=== PATIENT | male | born 1985 | race Asian ===

== ENCOUNTER 2017-11-06 20:56 | Emergency (ER) | payer OTHER ==
[~2017-11-06] VITALS: Ht 180.3 cm; Wt 83.9 kg
[2017-11-06 21:05] VITALS: BP 124/68
--- NOTE | 2017-11-06 21:10 | Emergency Room Report ---
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 He presents with a scratch from outpatient. This occurred just prior to arrival. No other injury. Immunization up to date Allergies: Coded Allergies: No Known Allergies (Unverified , 11/06/17) Patient History Past Medical History: see triage record, old chart reviewed Past Surgical History: none Pertinent Family History: none Social History: Denies: smoking Immunizations: other Reviewed Nursing Documentation: PMH: Agreed, PSxH: Agreed Nursing Documentation-PMH Past Medical History: No Stated History Review of Systems Eye: Denies: eye pain, blurred vision ENT: Denies: ear pain, nose congestion, throat swelling Respiratory: Denies: cough, shortness of breath Cardiovascular: Denies: chest pain, palpitations Gastrointestinal: Denies: abdominal pain, diarrhea, nausea, vomiting Musculoskeletal: Denies: back pain, joint pain Skin: Denies: rash Neurological: Denies: headache, numbness Endocrine: Denies: increased thirst, increased urine Hematologic/Lymphatic: Denies: easy bruising All Other Systems: negative except mentioned in HPI Physical Exam Vital Signs Date Time Temp Pulse Resp B/P (MAP) Pulse Ox O2 Delivery O2 Flow Rate FiO2 11/06/17 20:57 98.6 74 15 124/68 100 Room Air vitals normal Sp02 EP Interpretation: reviewed, normal General Appearance: well appearing, no apparent distress, alert Head: normocephalic, atraumatic Eyes: bilateral eye PERRL, bilateral eye EOMI ENT: hearing grossly normal, normal pharynx Neck: full range of motion, supple, no meningismus Respiratory: chest non-tender, lungs clear, normal breath sounds Cardiovascular #1: regular rate, rhythm, no murmur Gastrointestinal: normal bowel sounds, non tender, no mass, no organomegaly, no bruit, non-distended Musculoskeletal: back normal, gait/station normal, normal range of motion, other - 4cm abrasion x 2 to left forearm. Neurologic: alert, oriented x3 Psychiatric: mood/affect normal Skin: warm/dry Medical Decision Making Diagnostic Impression: Primary Impression: Abrasion, forearm w/o infection ER Course Patient with abrasion to the forearm. No laceration. Low risk for infection. Last Vital Signs Date Time Temp Pulse Resp B/P (MAP) Pulse Ox O2 Delivery O2 Flow Rate FiO2 11/06/17 20:57 98.6 74 15 124/68 100 Room Air Status: improved Disposition: HOME, SELF-CARE Condition: Stable Additional Instructions: Followup with employee health in 2-5 days. Return if worse. SIMRAN WHYTE M.D. Nov 06, 2017 21:10
[2017-11-06 21:15] VITALS: BP 124/68
[2017-11-06] MEDS ORDERED: Bacitracin Oint UD TOPIC ONE (21:15)
== END 2017-11-06 22:00 | disposition home or self-care (01) ==
LOC: EMR 21:31
DX: S50.812A Abrasion of left forearm, initial encounter (principal); Y04.2XXA Assault by strike against or bumped into by another person, initial encounter; Y92.239 Unspecified place in hospital as the place of occurrence of the external cause; Y99.0 Civilian activity done for income or pay
CPT/HCPCS: 99282